=== PATIENT | female | born 1935 | race African-American/Black ===

== ENCOUNTER 2019-12-10 04:15 | Day surgery (SDC) | payer MEDICARE, MEDICAID ==
[2019-12-09 14:18] LABS: COVID AG,FIA SOURCE NASOPHARYNGEAL
[~2019-12-10] VITALS: Ht 165.1 cm; Wt 78.0 kg
[~2019-12-10 04:15] MED LIST: ATOR10TA84 PO; FLURBIPROFEN SODIUM 0.03% 2.5 ML OPHTHALMIC SOLUTION ONE; GLIP-197 PO; METH-386 PO; MOXIFLOXACIN HCL 0.5% 3 ML OPHTHALMIC SOLUTION ONE; RINGERS SOLUTION,LACTATED 500 ML IV ONE; TRIA1TAB93 PO; VALS1TAB76 PO
[2019-12-10] MEDS ORDERED: MIDAZOLAM HCL 2 MG/2 ML VIAL IVP ONE (04:16)
[2019-12-10] MEDS ORDERED: FentaNYL CITRATE-PF 100 MCG/2 ML VIAL IVP ONE (04:16)
[2019-12-10] MEDS ORDERED: RINGERS SOLUTION,LACTATED 500 ML IV ONE (05:00)
[2019-12-10] MEDS: FLURBIPROFEN SODIUM 0.03% 2.5 ML OPHTHALMIC SOLUTION OD SCH ×3 (05:18→05:30)
[2019-12-10] MEDS: MOXIFLOXACIN HCL 0.5% 3 ML OPHTHALMIC SOLUTION OD SCH ×3 (05:18→05:30)
[2019-12-10] MEDS ORDERED: TETRACAINE HCL/PF 0.5% 4 ML OPHTHALMIC SOLUTION ONE (05:59)
[2019-12-10] MEDS ORDERED: HYALURONATE SODIUM 12 MG/ML 0.8 ML SYRINGE IO ONE (18:24)
[2019-12-10] MEDS ORDERED: NEOMYCIN/POLYMYXIN B/DEXAMETH 3.5 GM OPHTHALMIC OINTMENT ONE (18:24)
[2019-12-10] MEDS ORDERED: POVIDONE-IODINE 10% 15 ML SOLUTION UD ONE (18:24)
[2019-12-10] MEDS ORDERED: EPINEPHrine 1:1,000 [1 MG/ML] AMP ONE (18:24)
[2019-12-10] MEDS ORDERED: LIDOCAINE 1% 20 ML VIAL *UNAVILABLE ONE (18:24)
[2019-12-10] MEDS ORDERED: PrednisoLONE ACETATE 1% 5 ML OPHTHALMIC SUSPENSION ONE (18:24)
== END 2019-12-10 08:20 | disposition home or self-care (01) ==
LOC: SURGERY 04:15
PROVIDERS: ATTEND Ophthalmology
DX: E11.39 Type 2 diabetes mellitus with other diabetic ophthalmic complication (principal); H40.1110 Primary open-angle glaucoma, right eye, stage unspecified; I10 Essential (primary) hypertension; Z88.0 Allergy status to penicillin; Z87.891 Personal history of nicotine dependence; Z79.82 Long term (current) use of aspirin; Z79.899 Other long term (current) drug therapy; Z96.642 Presence of left artificial hip joint; Z85.118 Personal history of other malignant neoplasm of bronchus and lung; Z85.3 Personal history of malignant neoplasm of breast
CPT/HCPCS: 66174; 87426; 93005; J0171; J2250; J3010; J3490 ×2; J7120

== ENCOUNTER 2020-01-14 06:05 | Day surgery (SDC) | payer MEDICARE, MEDICAID ==
[2020-01-13 14:46] LABS: COVID AG,FIA SOURCE NASOPHARYNGEAL
[~2020-01-14] VITALS: Ht 165.1 cm; Wt 78.0 kg
[2020-01-14] MEDS: MOXIFLOXACIN HCL 0.5% 3 ML OPHTHALMIC SOLUTION OS SCH ×3 (06:36→06:57)
[2020-01-14] MEDS: FLURBIPROFEN SODIUM 0.03% 2.5 ML OPHTHALMIC SOLUTION OS SCH ×3 (06:36→06:57)
[2020-01-14 07:02] LABS: GLUCOMETER DEV NAME(LOC) SDS.; GLUCOSE,POINT OF CARE 124 MG/DL (70-110)
[2020-01-14] MEDS ORDERED: PROPARACAINE HCL 0.5% 15 ML OPHTHALMIC SOLUTION OS ONE (07:30)
[2020-01-14] MEDS ORDERED: FentaNYL CITRATE-PF 100 MCG/2 ML VIAL IVP ONE (12:00)
[2020-01-14] MEDS ORDERED: MIDAZOLAM HCL 2 MG/2 ML VIAL IVP ONE (12:00)
== END 2020-01-14 08:45 | disposition home or self-care (01) ==
LOC: SURGERY 06:05
PROVIDERS: ATTEND Ophthalmology
DX: E11.39 Type 2 diabetes mellitus with other diabetic ophthalmic complication (principal); H40.1120 Primary open-angle glaucoma, left eye, stage unspecified; I10 Essential (primary) hypertension; H42 Glaucoma in diseases classified elsewhere; E78.00 Pure hypercholesterolemia, unspecified; Z88.0 Allergy status to penicillin; Z88.7 Allergy status to serum and vaccine; Z88.8 Allergy status to other drugs, medicaments and biological substances; Z91.040 Latex allergy status; Z96.642 Presence of left artificial hip joint; Z87.891 Personal history of nicotine dependence; Z98.890 Other specified postprocedural states; Z85.118 Personal history of other malignant neoplasm of bronchus and lung; Z85.3 Personal history of malignant neoplasm of breast
CPT/HCPCS: 66174; 82962; 87426; C9803; J2250; J3010; J7120

== ENCOUNTER 2020-06-11 07:10 | Emergency (ER) | payer MEDICARE, MEDICAID ==
[~2020-06-11] VITALS: Ht 172.7 cm; Wt 77.3 kg
[~2020-06-11 07:10] MED LIST changes: -FLURBIPROFEN SODIUM 0.03% 2.5 ML OPHTHALMIC SOLUTION ONE; -MOXIFLOXACIN HCL 0.5% 3 ML OPHTHALMIC SOLUTION ONE; -RINGERS SOLUTION,LACTATED 500 ML IV ONE
[2020-06-11] MEDS ORDERED: SILVER NITRATE APPLICATOR 1 EA STICK TP ONE (08:00)
[2020-06-11 08:59] VITALS: BP 165/62
== END 2020-06-11 09:44 | disposition home or self-care (01) ==
LOC: EMS 07:11
DX: R04.0 Epistaxis (principal); E11.9 Type 2 diabetes mellitus without complications; E78.00 Pure hypercholesterolemia, unspecified; I10 Essential (primary) hypertension; Z88.0 Allergy status to penicillin; Z88.6 Allergy status to analgesic agent; Z88.8 Allergy status to other drugs, medicaments and biological substances; Z91.040 Latex allergy status
CPT/HCPCS: 30901; 99284; Z7502; Z7610